=== PATIENT | female | born 1970 | race Two or more races ===

== ENCOUNTER 2016-11-15 15:06 | Inpatient (IN) | payer SELFPAY ==
[~2016-11-15] VITALS: Ht 160 cm; Wt 83.9 kg
[2016-11-15] MEDS ORDERED: ONDANSETRON 2MG/ML, 2ML ONE (15:58)
[2016-11-15] MEDS ORDERED: MORPHINE SULFATE 4 MG/ML, 1ML ONE ×2 (15:58→17:38)
[2016-11-15] MEDS ORDERED: FAMOTIDINE 20 MG/2 ML ONE (15:58)
[2016-11-15] MEDS ORDERED: ONDANSETRON 2MG/ML, 2ML IVPush ONE (16:00)
[2016-11-15] MEDS ORDERED: SODIUM CHLORIDE 0.9% 1,000ML IVBOLUS ONE (16:00)
[2016-11-15] MEDS ORDERED: SODIUM CHLORIDE FLUSH 10ML SYR IVF ONE (16:00)
[2016-11-15] MEDS ORDERED: FAMOTIDINE 20 MG/2 ML IVP ONE (16:00)
[2016-11-15] MEDS: MORPHINE SULFATE 4 MG/ML, 1ML IVPush PRN ×2 (16:08→17:41)
[2016-11-15 16:30] LABS: ASPARTATE AMINO TRANSFERASE 24 U/L (15-37); BLOOD UREA NITROGEN 9 mg/dL (7-18)
[2016-11-15] MEDS ORDERED: LISI-167 PO (17:36)
[2016-11-15] MEDS ORDERED: RANI150C PO (17:36)
[2016-11-15] MEDS ORDERED: METF850T2 PO (17:36)
[2016-11-15] MEDS ORDERED: CEFTRIAXONE PMX 1GM/50ML 50 ML ONE (17:38)
[2016-11-15] MEDS ORDERED: CEFTRIAXONE PMX 1GM/50ML 50 ML IV ONE (18:00)
[2016-11-15] MEDS ORDERED: ONDANSETRON ODT 4 MG PO PRN (19:00)
[2016-11-15] MEDS ORDERED: TEMAZEPAM 15 MG CAPSULE PO PRN (19:00)
[2016-11-15] MEDS ORDERED: PROMETHAZINE 25 MG/ML, 1ML IM PRN (19:00)
[2016-11-15] MEDS ORDERED: LABETALOL 5MG/ML 40ML VIAL IVPush PRN (19:00)
[2016-11-15] MEDS ORDERED: ENALAPRILAT 1.25 MG/ML, 2ML IVPush PRN (19:00)
[2016-11-15] MEDS: morphine SULFATE 10 MG/ML, 1ML IVPush PRN (20:35)
[2016-11-15] MEDS: FAMOTIDINE 20 MG/2 ML IVPush SCH (20:37)
[2016-11-15] MEDS: INSULIN ASPART 100 UNITS/ML, PEN SQ-INSULIN SCH (21:00)
[2016-11-15] MEDS: CEFOTETAN PMX 2GM/50ML 50 ML IV SCH (21:03)
[2016-11-15] MEDS: POTASSIUM CHLORIDE 10 MEQ in D5%-0.9% NACL 1,000 ML IV SCH (21:03)
[2016-11-15 23:30] VITALS: BP 144/85
[2016-11-16] MEDS: morphine SULFATE 10 MG/ML, 1ML IVPush PRN ×2 (00:20→11:33)
[2016-11-16 03:34] VITALS: BP 110/71
[2016-11-16 05:55] LABS: ASPARTATE AMINO TRANSFERASE 37 U/L (15-37); BLOOD UREA NITROGEN 6 mg/dL (7-18); TOTAL IRON BINDING CAPACITY 372 mcg/dL (250-450)
[2016-11-16] MEDS: POTASSIUM CHLORIDE 10 MEQ in D5%-0.9% NACL 1,000 ML IV SCH (06:38)
[2016-11-16] MEDS: INSULIN ASPART 100 UNITS/ML, PEN SQ-INSULIN SCH ×4 (07:00→21:00)
[2016-11-16 08:05] VITALS: BP 117/77
[2016-11-16] MEDS: LISINOPRIL 10 MG TABLET PO SCH (08:16)
[2016-11-16] MEDS: FAMOTIDINE 20 MG/2 ML IVPush SCH ×2 (08:16→20:44)
[2016-11-16] MEDS: CEFOTETAN PMX 2GM/50ML 50 ML IV SCH ×2 (08:44→20:44)
[2016-11-16] MEDS ORDERED: SUCCINYLCHOLINE 20 MG/ML, 10ML ONE (10:23)
[2016-11-16] MEDS ORDERED: CEFOTETAN 1 GM ONE (10:23)
[2016-11-16] MEDS ORDERED: NEOSTIGMINE 1 MG/ML, 10ML ONE (10:23)
[2016-11-16] MEDS ORDERED: PROPOFOL 10 MG/ML, 20ML ONE (10:23)
[2016-11-16] MEDS ORDERED: ONDANSETRON 2MG/ML, 2ML ONE (10:23)
[2016-11-16] MEDS ORDERED: ROCURONIUM 10 MG/ML ONE (10:23)
[2016-11-16] MEDS ORDERED: GLYCOPYRROLATE 0.2MG/1ML ONE (10:23)
[2016-11-16 13:50] VITALS: BP 137/82
[2016-11-16] MEDS ORDERED: BUPIVACAINE/PF-EPI 0.5% 1:200K ONE (16:18)
[2016-11-16] MEDS ORDERED: MIDAZOLAM 1 MG/ML, 2ML ONE (16:40)
[2016-11-16] MEDS ORDERED: FENTANYL PF 250 MCG/5ML ONE (16:40)
[2016-11-16] MEDS ORDERED: OXYcodone 5 MG/5 ML ORAL.SOL UDC PO PRN (17:30)
[2016-11-16] MEDS ORDERED: HYDROcodone/APAP 7.5-325MG/15ML UDC PO PRN (17:30)
[2016-11-16] MEDS ORDERED: METOPROLOL 1 MG/ML, 5ML IV PRN (17:30)
[2016-11-16] MEDS ORDERED: LABETALOL 5MG/ML, 20ML IV PRN (17:30)
[2016-11-16] MEDS ORDERED: MEPERIDINE/PF 25MG/0.5ML IVPush PRN (17:30)
[2016-11-16] MEDS ORDERED: PROMETHAZINE 25 MG/ML, 1ML IV PRN (17:30)
[2016-11-16] MEDS ORDERED: hydrALAzine 20 MG/ML, 1ML IV PRN (17:30)
[2016-11-16] MEDS ORDERED: ALBUTEROL SULFATE 2.5 MG/3 ML NPPB PRN (17:30)
[2016-11-16] MEDS ORDERED: MIDAZOLAM 1 MG/ML, 2ML IV PRN (17:30)
[2016-11-16] MEDS ORDERED: EPHEDRINE 50 MG/ML, 1ML IVPush PRN (17:30)
[2016-11-16] MEDS ORDERED: ONDANSETRON 2MG/ML, 2ML IVPush PRN (17:30)
[2016-11-16] MEDS ORDERED: ACETAMINOPHEN 325 MG TABLET PO PRN (17:30)
[2016-11-16] MEDS ORDERED: FENTANYL PF 100 MCG/2ML ONE (18:47)
[2016-11-16] MEDS ORDERED: HYDROmorphone 1 MG/ML, 1ML ONE (18:47)
[2016-11-16] MEDS: FENTANYL PF 100 MCG/2ML IV PRN ×2 (18:52→19:05)
[2016-11-16] MEDS ORDERED: PROMETHAZINE 25 MG/ML, 1ML ONE (19:09)
[2016-11-16] MEDS: HYDROmorphone 1 MG/ML, 1ML IV PRN ×4 (19:25→19:45)
[2016-11-16 20:50] VITALS: BP 118/82
[2016-11-16] MEDS: METFORMIN MC SCH (23:30)
[2016-11-16] MEDS ORDERED: D5%-0.45NACL+KCL 20MEQ 1,000 ML IV SCH (23:30)
[2016-11-17 01:09] VITALS: BP 147/83
[2016-11-17] MEDS: morphine SULFATE 10 MG/ML, 1ML IVPush PRN ×3 (01:16→09:38)
[2016-11-17 05:54] VITALS: BP 124/82
[2016-11-17 06:07] LABS: BLOOD UREA NITROGEN 4 mg/dL (7-18)
[2016-11-17 06:46] VITALS: BP 127/83
[2016-11-17] MEDS: INSULIN ASPART 100 UNITS/ML, PEN SQ-INSULIN SCH ×4 (07:00→20:56)
[2016-11-17] MEDS: METFORMIN MC SCH ×3 (07:30→23:30)
[2016-11-17] MEDS: FAMOTIDINE 20 MG/2 ML IVPush SCH ×2 (09:38→20:57)
[2016-11-17] MEDS: CEFOTETAN PMX 2GM/50ML 50 ML IV SCH ×2 (09:38→21:03)
[2016-11-17] MEDS: LISINOPRIL 10 MG TABLET PO SCH (09:38)
[2016-11-17] MEDS: OXYcodone/APAP 10/325MG TABLET PO PRN ×2 (10:05→21:30)
[2016-11-17] MEDS: KETOROLAC 30 MG/1 ML IVPush SCH ×3 (10:05→23:13)
[2016-11-17] MEDS: POLYETHYLENE GLYCOL 17 GM PACKET PO SCH (10:11)
[2016-11-17] MEDS ORDERED: D5%-0.45NACL+KCL 20MEQ 1,000 ML IV SCH ×2 (14:30→23:30)
[2016-11-17 15:11] VITALS: BP 108/73
[2016-11-17 20:15] VITALS: BP 109/74
[2016-11-17] MEDS: D5%-0.45NACL+KCL 20MEQ 1,000 ML IV SCH (22:51)
[2016-11-18 02:43] VITALS: BP 89/61
[2016-11-18] MEDS: D5%-0.45NACL+KCL 20MEQ 1,000 ML IV SCH ×2 (03:40→10:20)
[2016-11-18 05:23] VITALS: BP 110/76
[2016-11-18] MEDS: KETOROLAC 30 MG/1 ML IVPush SCH ×2 (05:30→11:22)
[2016-11-18 05:33] LABS: ASPARTATE AMINO TRANSFERASE 26 U/L (15-37); BLOOD UREA NITROGEN 6 mg/dL (7-18)
[2016-11-18] MEDS: INSULIN ASPART 100 UNITS/ML, PEN SQ-INSULIN SCH ×2 (07:00→11:00)
[2016-11-18 07:22] VITALS: BP 103/66
[2016-11-18] MEDS: METFORMIN MC SCH (07:30)
[2016-11-18] MEDS ORDERED: CEFD300C37 PO (08:00)
[2016-11-18] MEDS ORDERED: OXYC1TAB9 PO (08:00)
[2016-11-18] MEDS ORDERED: POLY17PO5 PO (08:00)
[2016-11-18] MEDS ORDERED: METR500T PO (08:00)
[2016-11-18] MEDS ORDERED: LACT1CAP24 PO (08:00)
[2016-11-18] MEDS ORDERED: FERR325T20 PO (08:05)
[2016-11-18] MEDS ORDERED: CEFDINIR 300 MG CAPSULE PO SCH (08:30)
[2016-11-18] MEDS ORDERED: metroNIDAZOLE 500 MG TABLET PO SCH (09:00)
[2016-11-18] MEDS: FAMOTIDINE 20 MG/2 ML IVPush SCH (10:14)
[2016-11-18] MEDS: POLYETHYLENE GLYCOL 17 GM PACKET PO SCH (10:14)
[2016-11-18] MEDS: LISINOPRIL 10 MG TABLET PO SCH (10:14)
== END 2016-11-18 13:12 | disposition home or self-care (01) | DRG 853 ==
LOC: ED 17:55 → EDIP 18:10 → 4NOR 19:50
PROVIDERS: ADMIT Internal Medicine; ATTEND Internal Medicine
PROC: 0FT44ZZ Resection of Gallbladder, Percutaneous Endoscopic Approach (ICD-10-PCS; principal; 2016-11-16 16:45)
DX: A41.9 Sepsis, unspecified organism (principal); E43 Unspecified severe protein-calorie malnutrition; E87.1 Hypo-osmolality and hyponatremia; K80.00 Calculus of gallbladder with acute cholecystitis without obstruction; E11.9 Type 2 diabetes mellitus without complications; I10 Essential (primary) hypertension; K21.9 Gastro-esophageal reflux disease without esophagitis; D50.9 Iron deficiency anemia, unspecified; D75.89 Other specified diseases of blood and blood-forming organs; Z79.899 Other long term (current) drug therapy; Z79.84 Long term (current) use of oral hypoglycemic drugs; Z68.32 Body mass index [BMI] 32.0-32.9, adult
CPT/HCPCS: 36415; 76700; 80048; 80053; 82607; 82728; 82962; 83036; 83540; 83550; 83605; 83690; 84145; 84703; 85025; 88304; 93005; 96361; 96365; 96366; 96372; 96375; 96376; J0696; J1170; J1815; J1885; J2250; J2405; J2550; J2704; J2710; J3010; J3480; J3490; J7042; J0330; J2270; J7030; S0028; S0074